=== PATIENT | male | born 1935 | race Caucasian/White ===

== ENCOUNTER 2020-05-19 11:10 | Emergency (ER) | payer OTHER, MEDICARE ==
--- OUTSIDE RECORDS SUMMARY | 2020-05-19 11:13 | XMS REPORT | Clinical Summary ---
:1935 Author Organization [facility] Address [address] [place] [address] Care Team Providers Name Role Phone Yulissa Primary Care Provider Allergies No Known Allergies Medications Medication Sig Dispensed Refills Start End Date Status Date omeprazole (PRILOSEC) 40 Take 40 mg by mouth 0 Active MG capsule daily In the morning . amLODIPine (NORVASC) 10 Take 10 mg by mouth 0 Active MG tabletIndications: daily In am . high blood pressure hydrochlorothiazide Take 12.5 mg by 0 Active (MICROZIDE) 12.5 mg mouth daily Friday, capsule Friday, Friday, in am . multivitamin per tablet Take 1 tablet by 0 Active mouth daily Takes centrum silver at home in am . metoprolol (TOPROL-XL) Take 50 mg by mouth 0 Active 50 MG 24 hr tablet daily At 5 pm . irbesartan (AVAPRO) 300 Take 300 mg by 0 Active MG tablet mouth nightly At 5 pm . pravastatin (PRAVACHOL) Take 40 mg by mouth 0 Active 40 MG tablet daily At bedtime . insulin glargine Inject 15 Units 0 Active (LANTUS) 100 unit/mL subcutaneously injection nightly Use as directed . insulin aspart Inject 6 Units 0 Active protamine-insulin aspart subcutaneously 3 (NOVOLOG MIX 70/30) 100 (three) times daily unit/mL (70-30) with meals. injection Hospital, Clinic, or Ordered Dose Route Frequency Start Date End D ate Status Other Facility Administered Medication iopamidol 100 mL IV IMG once as needed 04/12/2016 Active (ISOVUE-300) injection 100 mL iohexol (OMNIPAQUE) 30 mL Oral IMG once as needed 04/12/2016 Active injection 300 mg iodine/mL Active Problems Problem Noted Date Seizures 03/04/2016 TIA (transient ischemic attack) 02/28/2016 Social History Tobacco Use Types Packs/Day Years Used Date Never Smoker Alcohol Use Drinks/Week oz/Week Comments Yes 1 Glasses of wine 0.6 1 glass of red wine per week Sex Assigned at Date Recorded Not on file Job Start Date Occupation Industry Not on file Not on file Not on file Travel History Travel Start Travel End No recent travel history available. Last Filed Vital Signs Not on file Plan of Treatment Not on file Results Not on fileafter 05/19/2019 Insurance Payer Benefit Plan / Group Subscriber ID Type Phone A ddress MEDICARE MEDICARE A B xxxxxxxxxx Medicare MCR SUPPLEMENT/INDIVIDUAL AARP/[facility] xxxxxxxxxxx [facility] (Home) [place] [address] Advance Directives For more information, please contact:[address] [phone] Code Status Date Activated Date Inactivated Comments Full Code 02/28/2016 10:32 PM 03/02/2016 12:54 PM This code status was determined by: Patient
--- NOTE | 2020-05-19 12:24 | EDPHYS ---
Physician Documentation [facility] Name: Sunny Mcpherson Age: 84 yrs Sex: Male : 1935 Arrival Date: 05/19/2020 Time: 11:14 Bed 18 Private MD: Joel London V ED Physician Addy Pastor HPI: 05/19 12:16 This 84 yrs old Male presents to ER via Wheelchair with complaints of carol Vomiting blood, Bloody Stools. 12:16 The patient presents to the emergency department with nausea, vomiting, that is carol intermittent, 2 times since the onset of symptoms. Onset: The symptoms/episode began/occurred this morning. Possible causes: unknown. The symptoms are aggravated by nothing. The symptoms are alleviated by nothing. The patient presents to the emergency department vomiting blood, a moderate amount, coffee grounds in nature, with multiple such episodes. Onset: The symptoms/episode began/occurred 1 day(s) ago. Abdominal pain: none is appreciated. Modifying factors: The symptoms are alleviated by nothing, the symptoms are aggravated by nothing. Associated signs and symptoms: The patient has no apparent associated signs or symptoms. Associated signs and symptoms: The patient has no apparent associated signs or symptoms. Historical: - Allergies: 11:23 No Known Allergies; ll1 - PMHx: 11:23 BPH; Hypertension; Hyperlipidemia; Diabetes - IDDM; ll1 - PSHx: 11:23 Lithotripsy; TURP; Heart stents; colonoscopy; esophagus surgery; ll1 - Immunization history:: Flu vaccine is up to date. - Social history:: Smoking status: Patient denies any tobacco usage or history of. - Family history:: not pertinent. ROS: 12:16 Constitutional: Negative for fever, chills, and weight loss, Eyes: Negative for injury, carol pain, redness, and discharge, ENT: Negative for injury, pain, and discharge, Neck: Negative for injury, pain, and swelling, Cardiovascular: Negative for chest pain, palpitations, and edema, Respiratory: Negative for shortness of breath, cough, wheezing, and pleuritic chest pain, Back: Negative for injury and pain, : Negative for injury, bleeding, discharge, and swelling, MS/Extremity: Negative for injury and deformity, Skin: Negative for injury, rash, and discoloration, Neuro: Negative for headache, weakness, numbness, tingling, and seizure, Psych: Negative for depression, anxiety, suicide ideation, homicidal ideation, and hallucinations, Allergy/Immunology: Negative for hives, rash, and allergies, Endocrine: Negative for neck swelling, polydipsia, polyuria, polyphagia, and marked weight changes, Hematologic/Lymphatic: Negative for swollen nodes, abnormal bleeding, and unusual bruising. 12:16 Abdomen/GI: Positive for nausea and vomiting, hematemesis, black/tarry stool. Exam: 12:16 Constitutional: This is a well developed, well nourished patient who is awake, alert, carol and in no acute distress. Head/Face: Normocephalic, atraumatic. Eyes: Pupils equal round and reactive to light, extra-ocular motions intact. Lids and lashes normal. Conjunctiva and sclera are non-icteric and not injected. Cornea within normal limits. Periorbital areas with no swelling, redness, or edema. ENT: Nares patent. No nasal discharge, no septal abnormalities noted. Tympanic membranes are normal and external auditory canals are clear. Oropharynx with no redness, swelling, or masses, exudates, or evidence of obstruction, uvula midline. Mucous membranes moist. Neck: Trachea midline, no thyromegaly or masses palpated, and no cervical lymphadenopathy. Supple, full range of motion without nuchal rigidity, or vertebral point tenderness. No Meningismus. Chest/axilla: Normal chest wall appearance and motion. Nontender with no deformity. No lesions are appreciated. Cardiovascular: Regular rate and rhythm with a normal S1 and S2. No gallops, murmurs, or rubs. Normal PMI, no JVD. No pulse deficits. Respiratory: Lungs have equal breath sounds bilaterally, clear to auscultation and percussion. No rales, rhonchi or wheezes noted. No increased work of breathing, no retractions or nasal flaring. Back: No spinal tenderness. No costovertebral tenderness. Full range of motion. Male : Normal genitalia with no discharge or lesions. Skin: Warm, dry with normal turgor. Normal color with no rashes, no lesions, and no evidence of cellulitis. MS/ Extremity: Pulses equal, no cyanosis. Neurovascular intact. Full, normal range of motion. Neuro: Awake and alert, GCS 15, oriented to person, place, time, and situation. Cranial nerves II-XII grossly intact. Motor strength 5/5 in all extremities. Sensory grossly intact. Cerebellar exam normal. Normal gait. Psych: Awake, alert, with orientation to person, place and time. Behavior, mood, and affect are within normal limits. 12:16 Abdomen/GI: Inspection: abdomen appears normal, Bowel sounds: normal, Rectal exam: rectal tone normal, Stool: guaiac positive, black, hemorrhoid(s), are not appreciated, mass, is not appreciated, swelling, is not appreciated, tenderness, is not appreciated, Liver: no appreciated palpable abnormalities, Hernia: not appreciated. Vital Signs: 11:19 BP 115 / 66; Pulse 90; Resp 18; Temp 98.2; Pulse Ox 98% ; Weight 79.38 kg; Height 5 ft. ll1 10 in. (177.80 cm); Pain 0/10; 15:04 BP 135 / 81; Pulse 86; Resp 17 S; Pulse Ox 97% on R/A; jd3 11:19 Body Mass Index 25.11 (79.38 kg, 177.80 cm) ll1 MDM: 11:36 Patient medically screened. [facility] 13:04 Data reviewed: vital signs, nurses notes, EMS record, lab test result(s), EKG, [facility] radiologic studies, plain films. 05/19 12:09 Order name: Basic Metabolic Panel [facility] 05/19 12:09 Order name: CBC with Diff [facility] 05/19 12:09 Order name: LFT's [facility] 05/19 12:09 Order name: Magnesium [facility] 05/19 12:09 Order name: NT PRO-BNP [facility] 05/19 12:09 Order name: PT-INR; Complete Time: 13:29 [facility] 05/19 12:09 Order name: Troponin (emerg Dept Use Only) [facility] 05/19 12:09 Order name: XRAY Chest (1 view); Complete Time: 13:29 [facility] 05/19 12:09 Order name: Lipase [facility] 05/19 12:09 Order name: Urine Culture [facility] 05/19 12:09 Order name: Type And Screen; Complete Time: 13:29 [facility] 05/19 13:13 Order name: Urine Dipstick--Ancillary (enter results) 05/19 13:25 Order name: Manual Differential EDMS 05/19 12:09 Order name: EKG; Complete Time: 12:10 [facility] 05/19 12:09 Order name: Cardiac monitoring; Complete Time: 13:05 [facility] 05/19 12:09 Order name: EKG - Nurse/Tech; Complete Time: 12:28 [facility] 05/19 12:09 Order name: IV Saline Lock; Complete Time: 12:51 [facility] 05/19 12:09 Order name: Labs collected and sent; Complete Time: 12:52 [facility] 05/19 12:09 Order name: O2 Per Protocol; Complete Time: 12:52 [facility] 05/19 12:09 Order name: O2 Sat Monitoring; Complete Time: 12:52 [facility] 05/19 12:09 Order name: Urine Dipstick-Ancillary (obtain specimen); Complete Time: 13:13 [facility] 05/19 12:09 Order name: IV Saline Lock - Large Bore; Complete Time: 12:52 [facility] 05/19 13:37 Order name: Labs - recollect needed: recollect chemistry; Complete Time: 14:45 ss Administered Medications: 13:13 Drug: ProTONIX 80 mg Route: IVP; Site: right antecubital; jd3 14:13 Follow up: Response: No adverse reaction jd3 13:13 Drug: NS 0.9% 1000 ml Route: IV; Rate: 1 bolus; Site: right antecubital; jd3 14:13 Follow up: Response: No adverse reaction; IV Status: Completed infusion; IV Intake: jd3 1000ml 13:13 Drug: NS 0.9% 1000 ml Route: IV; Rate: 125 ml/hr; Site: right antecubital; jd3 15:37 Follow up: IV Status: Infusion continued upon transfer jd3 13:17 Drug: ProTONIX 8 mg/hr Route: IV; Rate: 25 ml/hr; Site: right antecubital; jd3 15:37 Follow up: IV Status: Infusion continued upon transfer jd3 Disposition: 05/19/20 12:23 Transfer ordered to [facility]. Diagnosis are Gastrointestinal hemorrhage, unspecified, Type 1 diabetes mellitus, Elevated white blood cell count. - Reason for transfer: Higher level of care. - Accepting physician is to [facility]. - Condition is Fair. - Problem is new. - Symptoms have improved. Signatures: Dispatcher [employer] EDAddy Min MD MD cha Smirch, Shelby, RN RN Surinder Lester RN RN jd3 Brandon Melchor RN RN ll1 Corrections: (The following items were deleted from the chart) 13:40 12:23 05/19/2020 12:23 Transfer ordered to [facility]. carol Diagnosis is Gastrointestinal hemorrhage, unspecified; Type 1 diabetes mellitus. Reason for transfer: Higher level of care. Accepting physician is to [facility]. Condition is Fair. Problem is new. Symptoms have improved. carol 15:37 13:40 05/19/2020 12:23 Transfer ordered to [facility]. jd3 Diagnosis is Gastrointestinal hemorrhage, unspecified; Type 1 diabetes mellitus; Elevated white blood cell count. Reason for transfer: Higher level of care. Accepting physician is to [facility]. Condition is Fair. Problem is new. Symptoms have improved. carol
--- NOTE | 2020-05-19 12:24 | ER ---
Nurse's Notes [facility] Name: Sunny Mcpherson Age: 84 yrs Sex: Male : 1935 Arrival Date: 05/19/2020 Time: 11:14 Bed 18 Private MD: Joel London V Diagnosis: Gastrointestinal hemorrhage, unspecified;Type 1 diabetes mellitus;Elevated white blood cell count Presentation: 05/19 11:19 Chief complaint: Patient states: Dark blood in stool today. Reports vomiting up blood ll1 today also. + weakness. Coronavirus screen: Client denies travel out of the [place] in the last 14 days. At this time, the client does not indicate any symptoms associated with coronavirus-19. Ebola Screen: Patient denies travel to an Ebola-affected area in the 21 days before illness onset. Initial Sepsis Screen: Does the patient meet any 2 criteria? HR > 90 bpm. No. Patient's initial sepsis screen is negative. Does the patient have a suspected source of infection? Yes: Other: rectal bleeding. Risk Assessment: Do you want to hurt yourself or someone else? Patient reports no desire to harm self or others. Onset of symptoms was May 19, 2020. 11:19 Method Of Arrival: Wheelchair ll1 11:19 Acuity: TOM 3 ll1 Historical: - Allergies: 11:23 No Known Allergies; ll1 - PMHx: 11:23 BPH; Hypertension; Hyperlipidemia; Diabetes - IDDM; ll1 - PSHx: 11:23 Lithotripsy; TURP; Heart stents; colonoscopy; esophagus surgery; ll1 - Immunization history:: Flu vaccine is up to date. - Social history:: Smoking status: Patient denies any tobacco usage or history of. - Family history:: not pertinent. Screenin:24 Abuse screen: Denies threats or abuse. Denies injuries from another. Nutritional ph screening: No deficits noted. Tuberculosis screening: No symptoms or risk factors identified. Fall Risk None identified. Assessment: 12:00 General: Appears in no apparent distress. comfortable, well groomed, Behavior is calm, ph cooperative, appropriate for age, Denies fever, feeling ill. Pain: Denies pain. Neuro: Level of Consciousness is awake, alert, obeys commands, Oriented to person, place, time, situation, Denies weakness dizziness. Cardiovascular: Capillary refill < 3 seconds in bilateral fingers Patient's skin is warm and dry. Respiratory: Airway is patent Respiratory effort is even, unlabored, Respiratory pattern is regular, symmetrical. GI: Abdomen is flat, non-distended, Reports rectal bleeding, bloody stool, vomiting, x1 episode last night, dark red blood in vomit. Derm: Skin is intact, is healthy with good turgor, Skin is pink, warm \T\ dry. Musculoskeletal: Circulation, motion, and sensation intact. Range of motion: intact in all extremities. 13:00 Reassessment: Patient appears in no apparent distress at this time. Patient and/or jd3 family updated on plan of care and expected duration. Pain level reassessed. Patient is alert, oriented x 3, equal unlabored respirations, skin warm/dry/pink. 14:00 Reassessment: Patient appears in no apparent distress at this time. Patient and/or jd3 family updated on plan of care and expected duration. Pain level reassessed. Patient is alert, oriented x 3, equal unlabored respirations, skin warm/dry/pink. GI: Abdomen is flat, non-distended, Patient currently denies abdominal pain. 15:00 Reassessment: Patient appears in no apparent distress at this time. Patient and/or jd3 family updated on plan of care and expected duration. Pain level reassessed. Patient is alert, oriented x 3, equal unlabored respirations, skin warm/dry/pink. report given to Lisette with [facility]. pt continues to deny pain at this time. 15:04 Reassessment: Called [facility] who reports their ETA will be 20-25 minutes to ss transfer patient to [facility]. 15:30 Reassessment: Patient appears in no apparent distress at this time. Patient and/or jd3 family updated on plan of care and expected duration. Pain level reassessed. Patient is alert, oriented x 3, equal unlabored respirations, skin warm/dry/pink. report given to EMS for transfer. Vital Signs: 11:19 BP 115 / 66; Pulse 90; Resp 18; Temp 98.2; Pulse Ox 98% ; Weight 79.38 kg; Height 5 ft. ll1 10 in. (177.80 cm); Pain 0/10; 15:04 BP 135 / 81; Pulse 86; Resp 17 S; Pulse Ox 97% on R/A; jd3 11:19 Body Mass Index 25.11 (79.38 kg, 177.80 cm) ll1 ED Course: 11:14 Patient arrived in ED. mr 11:14 Joel London MD is Private Physician. mr 11:22 Triage completed. ll1 11:23 Arm band placed on Patient placed in an exam room, on a stretcher. ll1 11:28 Leslie Childress RN is Primary Nurse. ph 11:36 Addy Pastor MD is Attending Physician. carol 11:55 Inserted saline lock: 20 gauge in right antecubital area, using aseptic technique. ph Blood collected. 12:22 EKG done, by ED staff, reviewed by Addy Pastor MD. 3 13:[address] Pastor with Rony Soares from the [facility] Transfer Center.eb 13:18 XRAY Chest (1 view) In Process Unspecified. EDMS 13:24 Patient has correct armband on for positive identification. Placed in gown. Bed in low ph position. Call light in reach. Side rails up X 1. patient monitor on. Pulse ox on. NIBP on. Door closed. Noise minimized. Warm blanket given. 13:41 connected GI information security officer for [facility] with Dr. Pastor for patient transfer eb consultation. 14:25 administrative approval given by Mary Beth Soares Rn/ Patient has been accepted to [facility] bed 2163/ Dr. Dickerson has accepted the patient in transfer without conference. report to be called to the transfer center at [phone]. 15:35 No provider procedures requiring assistance completed. Patient transferred, IV remains jd3 in place. Administered Medications: 13:13 Drug: ProTONIX 80 mg Route: IVP; Site: right antecubital; jd3 14:13 Follow up: Response: No adverse reaction jd3 13:13 Drug: NS 0.9% 1000 ml Route: IV; Rate: 1 bolus; Site: right antecubital; jd3 14:13 Follow up: Response: No adverse reaction; IV Status: Completed infusion; IV Intake: jd3 1000ml 13:13 Drug: NS 0.9% 1000 ml Route: IV; Rate: 125 ml/hr; Site: right antecubital; jd3 15:37 Follow up: IV Status: Infusion continued upon transfer jd3 13:17 Drug: ProTONIX 8 mg/hr Route: IV; Rate: 25 ml/hr; Site: right antecubital; jd3 15:37 Follow up: IV Status: Infusion continued upon transfer jd3 Intake: 14:13 IV: 1000ml; Total: 1000ml. jd3 Outcome: 12:23 ER care complete, transfer ordered by MD. median 15:35 Transferred by ground EMS to [facility], Transfer form completed. jd3 X-rays sent w/ patient. 15:35 Condition: stable 15:35 Instructed on the need for transfer, Demonstrated understanding of instructions. 15:37 Patient left the ED. jd3 Signatures: Dispatcher [employer] EDAddy Mni MD MD cha Rivera, Katherine mr Tamar Vásquez, RN RN Leslie London RN RN [place] [id number] Surinder Long RN RN jd3 Botello, Elizabeth eb Lewis, Lynsay, RN RN ll1 Corrections: (The following items were deleted from the chart) 13:41 13:[address] Pastor with Diana from the [facility] Transfer eb Center. eb
[2020-05-19 12:46] LABS: Protime INR 1.03
[2020-05-19] MEDS ORDERED: PANTOPRAZOLE INJ 80 MG in NA CHLORIDE 0.9% 250 ML IV SCH (13:00)
[2020-05-19] MEDS ORDERED: NA CHLORIDE 0.9% 2,000 ML ONE (13:08)
[2020-05-19] MEDS ORDERED: PANTOPRAZOLE 40 MG INJ ONE (13:08)
[2020-05-19 13:22] LABS: Absolute Lymphocytes (CBC) 0.4 K/uL (0.7-4.9); Basophils % 0.3 % (0-1.3); Hematocrit 33.7 % (39.6-49.0); Lymphocytes % 2.7 % (15.3-44.8); MPV 10.7 fL (7.6-11.3); RBC Red Blood Cell Count 3.76 M/uL (4.33-5.43)
--- NOTE | 2020-05-19 13:23 | RAD REPORT ---
EXAM DESCRIPTION: RAD - Chest Single View - 05/19/2020 1:16 pm CLINICAL HISTORY: COUGH, vomiting, hypertension COMPARISON: February 2016 TECHNIQUE: AP portable chest image was obtained 05/19/2020 1:16 pm . FINDINGS: No focal lung parenchymal process. Interstitial pattern matches comparison. Heart and vasc ulature are normal. No measurable pleural effusion and no pneumothorax. No acute bony abnormality see n. No acute aortic findings suspected. IMPRESSION: No acute cardiopulmonary process. No significant change from comparison.
[2020-05-19 13:53] LABS: Blood Morphology Comment NOT SEEN (NOT SEEN); Platelet Estimate ADEQ
[2020-05-19 13:56] LABS: Urine Blood NEGATIVE (NEG); Urine Glucose 2+ (NEG); Urine Protein NEGATIVE (NEG); Urine Specific Gravity 1.015 (1.005-1.030); Urine pH 5.5 (5.0-7.0)
[2020-05-19 15:23] LABS: ALT/SGPT 18 U/L (12-78); Albumin 3.1 g/dL (3.4-5.0); Alkaline Phosphatase 64 U/L (45-117); BUN Blood Urea Nitrogen 47 mg/dL (7-18); Bicarbonate 25 mmol/L (21-32); Bilirubin Direct 0.1 mg/dL (0-0.2); Bilirubin Total 0.7 mg/dL (0.2-1.0); Glucose Level 369 mg/dL (74-106); Lipase 106 U/L (73-393); NT PRO-BNP 270 pg/mL (<450); Protein, Total 6.5 g/dL (6.4-8.2); Sodium Level 139 mmol/L (136-145); Troponin (Emerg Dept Use Only) < 0.02 ng/mL (0.0-0.045)
[2020-05-19 15:24] LABS: AST/SGOT 27 U/L (15-37); Magnesium 2.2 mg/dL (1.8-2.4); Potassium 5.1 mmol/L (3.5-5.1)
[2020-05-19 15:44] VITALS: TEMP 98.2
[2020-05-19 15:46] VITALS: BP 135/81; O2SAT 97
--- NOTE | 2020-05-21 11:15 | EKG ---
Test Date: 2020-05-19 Test Time: 12:22:55 Risk Management Analyst: RAUL MEASUREMENT RESULTS: Intervals: Rate: 87 OH: 200 QRSD: 72 QT: 380 QTc: 457 Ruby: P: 48 OH: 200 QRS: -44 T: 54 INTERPRETIVE STATEMENTS: Sinus rhythm with occasional premature ventricular complexes Left axis deviation Abnormal ECG Compared to ECG 03/03/2016 19:41:35 Ventricular premature complex(es) now present Electronically Signed On 05-21-20 11:13:42 CDT by Jeff Dimas
== END 2020-05-19 15:37 | disposition short-term general hospital (02) ==
LOC: ER 11:10
DX: K92.1 Melena (principal); D72.829 Elevated white blood cell count, unspecified; E10.9 Type 1 diabetes mellitus without complications; I10 Essential (primary) hypertension; Z95.818 Presence of other cardiac implants and grafts
CPT/HCPCS: 96365; 93005; 87088; 85025; 87086; 80048; 36415; 86900; 83735; 86850; 85610; 86901; 80076; 81003; 84484; 83690; 83880; 71045; 99285; 96366; C9113 ×2; J7050; J7030

== ENCOUNTER 2024-10-22 13:50 | Emergency (ER) | payer OTHER, MEDICARE ==
[2024-10-22 14:27] LABS: Absolute Lymphocytes (CBC) 0.4 K/uL (0.7-4.9); Absolute Monocytes 0.9 K/uL (0.1-1.3); Basophils % 0.5 % (0-1.3); Eosinophils % 0.3 % (0-4.4); Hematocrit 39.4 % (39.6-49.0); Hemoglobin 13.5 g/dL (13.6-17.9); Lymphocytes % 5.6 % (15.3-44.8); MCH 32.5 pg (27.0-35.0); MCHC 34.4 g/dL (32.0-36.0); MCV 94.5 fL (80-100); MPV 9.4 fL (7.6-11.3); Neutrophils % 79.6 % (41.7-73.7); Platelets 140 thou/uL (152-406); RBC Red Blood Cell Count 4.17 M/uL (4.33-5.43); Red Cell Distribution Width 13.8 % (12.1-15.2)
[2024-10-22 14:40] LABS: ALT/SGPT 17 U/L (16-61); AST/SGOT 19 U/L (15-37); Albumin 3.5 g/dL (3.4-5.0); Albumin/Globulin Ratio 1.1 (1.1-1.8); Alkaline Phosphatase 77 U/L (45-117); Anion Gap 6.7 mEq/L (5.0-15.0); BUN Blood Urea Nitrogen 13 mg/dL (7-18); Bicarbonate 28 mEq/L (21-32); Bilirubin Total 0.4 mg/dL (0.2-1.0); Globulin 3.3 g/dL (2.3-3.5); Glomerular Filtration Rate 72 ml/min (=/>90); Glucose Level 256 mg/dL (74-106); Potassium 3.7 mEq/L (3.5-5.1); Protein, Total 6.8 g/dL (6.4-8.2); Sodium Level 139 mEq/L (136-145); Troponin High Sensitivity 16.1 pg/mL (<58.9)
[2024-10-22 14:41] LABS: Bilirubin Direct < 0.2 mg/dL (0-0.2); Bilirubin Indirect, Calculated 0.2 mg/dL (0.2-0.8)
[2024-10-22 15:46] LABS: Influenza A Ag Negative; Influenza B Ag Negative
[2024-10-22 15:47] LABS: SARS-CoV-2 Antigen Rapid Res Positive (Negative)
[2024-10-22 16:20] LABS: Sqamous Epithelial None Seen /HPF (None Seen); Urine Bacteria None Seen /HPF (<20); Urine Bilirubin NEGATIVE (Negative); Urine Blood Negative (Negative); Urine Clarity Clear (Clear); Urine Color Light-Yellow (Yellow); Urine Crystals Unidentified Few /HPF (None Seen); Urine Culture Reflex Order NOT NEEDED; Urine Glucose 4+ (Over) (Negative); Urine Ketones TRACE (Negative); Urine Micro Reflex YN NO BILL MICROSCOPIC; Urine Mucus Slight /HPF (None Seen); Urine Nitrite NEGATIVE (Negative); Urine Protein NEGATIVE (Negative); Urine RBC <5 /HPF (None Seen); Urine Urobilinogen Normal (Normal); Urine WBC <5 /HPF (<5); Urine pH 5.5 (5.0-7.0)
--- NOTE | 2024-10-22 16:42 | ER ---
Nurse's Notes [facility] Name: Sunny Mcpherson Age: 88 yrs Sex: Male : 1935 Arrival Date: 10/22/2024 Time: 13:50 Bed 7 Private MD: Diagnosis: COVID-19;Hyperglycemia Presentation: 10/22 14:02 Chief complaint: EMS states: Pt c/o generalized weakness, urinary frequency and high ph blood sugar, BGL 290s for EMS, IV established and 500 mL bolus given. Coronavirus screen: Vaccine status: Patient reports being unvaccinated. Ebola Screen: No symptoms or risks identified at this time. Initial Sepsis Screen: Does the patient meet any 2 criteria? No. Patient's initial sepsis screen is negative. Does the patient have a suspected source of infection? No. Patient's initial sepsis screen is negative. Risk Assessment: Do you want to hurt yourself or someone else? Patient reports no desire to harm self or others. Onset of symptoms was October 22, 2024. 14:02 Method Of Arrival: EMS: [facility] 14:02 Acuity: TOM 3 ph Triage Assessment: 14:10 General: Appears in no apparent distress. comfortable, Behavior is calm, cooperative. ph Pain: Denies pain. Neuro: Level of Consciousness is awake, alert, obeys commands, Oriented to person, place, time, situation. Cardiovascular: Capillary refill < 3 seconds in bilateral fingers Patient's skin is warm and dry. Respiratory: Airway is patent Respiratory effort is even, unlabored. GI: Patient currently denies abdominal pain. : Reports urinary frequency. Historical: - Allergies: 14:09 No Known Allergies; ph - PMHx: 14:09 BPH; Diabetes - IDDM; Hyperlipidemia; Hypertension; ph - Immunization history:: Adult Immunizations unknown. - Infectious Disease History:: Denies. - Social history:: Smoking status: Patient denies any tobacco usage or history of. - Family history:: not pertinent. Screenin:10 [facility] ED Fall Risk Assessment (Adult) History of falling in the last 3 months, ph including since admission No falls in past 3 months (0 pts) Confusion or Disorientation No (0 pts) Intoxicated or Sedated No (0 pts) Impaired Gait No (0 pts) Mobility Assist Device Used No (0 pt) Altered Elimination No (0 pt) Score/Fall Risk Level 0 - 2 = Low Risk Oriented to surroundings, Maintained a safe environment, Hourly rounding (assess needs \T\ fall precautionary measures) done. Abuse screen: Denies threats or abuse. Denies injuries from another. Nutritional screening: No deficits noted. Tuberculosis screening: No symptoms or risk factors identified. Assessment: 14:12 General: SEE TRIAGE ASSESSMENT. ph Vital Signs: 14:02 BP 134 / 58; Pulse 72; Resp 18; Temp 97.8; Pulse Ox 96% on R/A; Weight 72.57 kg; Height ph 5 ft. 10 in. ; 15:33 BP 133 / 65; Pulse 60; Resp 18; Pulse Ox 94% on R/A; ph 14:02 Body Mass Index 22.96 (72.57 kg, 177.8 cm) ph ED Course: 13:53 Patient arrived in ED. ty 13:53 Branden Ty MD is Attending Physician. rt 13:58 Orlando Almaraz RN is Primary Nurse. bp 14:08 Initial lab(s) drawn, by me, sent to lab. EKG done, by ED staff, reviewed by Branden Ty MD. Maintain EMS IV. Dressing intact. Good blood return noted. Site clean \T\ dry. Gauge \T\ site: 20 RAC. Flushed with 10 mL NS. 14:09 Triage completed. ph 14:09 Arm band placed on Patient placed in an exam room, on a stretcher, on pulse oximetry. ph 14:10 Patient has correct armband on for positive identification. Bed in low position. Call ph light in reach. Side rails up X 1. Pulse ox on. NIBP on. Door closed. Noise minimized. 16:38 Joel London MD is Referral Physician. rt Administered Medications: 14:17 Drug: NS 0.9% IV 1000 ml IV at 1000 ml once; to be given as a bolus over 60 minutes bp Route: IV; Rate: 1000 ml; Site: right antecubital; Medication: 14:10 VIS not applicable for this client. ph Outcome: 16:41 Discharge ordered by . rt 16:55 Patient left the ED. hb Signatures: Leslie Childress RN RN ph Janine Pimentel RN RN Orlando Almaraz RN RN bp Branden Ty MD MD rt Yandell, Nirav ty
--- NOTE | 2024-10-22 16:42 | EDPHYS ---
Physician Documentation [facility] Name: Sunny Mcpherson Age: 88 yrs Sex: Male : 1935 Arrival Date: 10/22/2024 Time: 13:50 Bed 7 Private MD: ED Physician Branden Ty HPI: 10/22 15:03 This 88 yrs old Male presents to ER via EMS with complaints of Generalized weakness. rt 15:03 Patient presents to the ED with generalized weakness and hyperglycemia reportedly up to rt 300 today. Reports urinary frequency but denies any acute complaints, symptoms are moderate in severity, no other aggravating or alleviating factors.. Historical: - Allergies: 14:09 No Known Allergies; ph - PMHx: 14:09 BPH; Diabetes - IDDM; Hyperlipidemia; Hypertension; ph - Immunization history:: Adult Immunizations unknown. - Infectious Disease History:: Denies. - Social history:: Smoking status: Patient denies any tobacco usage or history of. - Family history:: not pertinent. ROS: 15:03 Constitutional: Negative for fever, chills, and weight loss, Cardiovascular: Negative rt for chest pain, palpitations, and edema, Respiratory: Negative for shortness of breath, cough, wheezing, and pleuritic chest pain, Abdomen/GI: Negative for abdominal pain, nausea, vomiting, diarrhea, and constipation, Skin: Negative for injury, rash, and discoloration, 15:03 : Positive for urinary frequency, Negative for burning with urination, 15:03 Neuro: Positive for weakness, Negative for altered mental status, Exam: 15:03 Constitutional: This is a well developed, well nourished patient who is awake, alert, rt and in no acute distress. Head/Face: Normocephalic, atraumatic. Chest/axilla: Normal chest wall appearance and motion. Nontender with no deformity. No lesions are appreciated. Cardiovascular: Regular rate and rhythm with a normal S1 and S2. No gallops, murmurs, or rubs. Normal PMI, no JVD. No pulse deficits. Respiratory: Lungs have equal breath sounds bilaterally, clear to auscultation and percussion. No rales, rhonchi or wheezes noted. No increased work of breathing, no retractions or nasal flaring. Abdomen/GI: Soft, non-tender, with normal bowel sounds. No distension or tympany. No guarding or rebound. No evidence of tenderness throughout. Skin: Warm, dry with normal turgor. Normal color with no rashes, no lesions, and no evidence of cellulitis. MS/ Extremity: Pulses equal, no cyanosis. Neurovascular intact. Full, normal range of motion. Neuro: Awake and alert, GCS 15, oriented to person, place, time, and situation. Cranial nerves II-XII grossly intact. Motor strength 5/5 in all extremities. Sensory grossly intact. Cerebellar exam normal. Normal gait. 15:03 ECG was reviewed by the Attending Physician. Vital Signs: 14:02 BP 134 / 58; Pulse 72; Resp 18; Temp 97.8; Pulse Ox 96% on R/A; Weight 72.57 kg; Height ph 5 ft. 10 in. ; 15:33 BP 133 / 65; Pulse 60; Resp 18; Pulse Ox 94% on R/A; ph 14:02 Body Mass Index 22.96 (72.57 kg, 177.8 cm) ph MDM: 13:53 Medical Screening Exam initiated rt 18:39 Differential Diagnosis UTI, flu, COVID, dehydration. Data reviewed: vital signs, nurses rt notes. Consideration of Admission/Observation Escalation of care including admission/observation considered. Management of patient was discussed with the following: Primary Care Provider: No need to admit, will follow-up patient in the outpatient setting.. I considered the following discharge prescriptions or medication management in the emergency department Medications were administered in the Emergency Department. See MAR. Independent interpretation of the following test(s) in the Emergency Department X-Ray: My interpretation is No infiltrate seen on interpretation of x-ray images. Care significantly affected by the following chronic conditions: Hypertension. Counseling: I had a detailed discussion with the patient and/or guardian regarding the historical points, exam findings, and any diagnostic results supporting the discharge/admit diagnosis, lab results, radiology results. Response to treatment: the patient's symptoms have markedly improved after treatment. 10/22 14:01 Order name: Basic Metabolic Panel; Complete Time: 14:45 rt 10/22 14: Order name: CBC with Diff; Complete Time: 14:37 rt 10/22 14: Order name: LFT's; Complete Time: 14:45 rt 10/22 14: Order name: Troponin HS; Complete Time: 14:45 rt 10/22 14:01 Order name: UAM; Complete Time: 16:28 rt 10/22 14:45 Order name: COVID-19 Ag + Flu A+B Ag; Complete Time: 15:50 rt 10/22 14:01 Order name: Cardiac monitoring; Complete Time: 14:08 rt 10/22 14:01 Order name: EKG - Nurse/Tech; Complete Time: 14:08 rt 10/22 14:01 Order name: IV Saline Lock; Complete Time: 14:08 rt 10/22 14:01 Order name: Labs collected and sent; Complete Time: 14:08 rt 10/22 14:01 Order name: O2 Per Protocol; Complete Time: 14:08 rt 10/22 14:01 Order name: O2 Sat Monitoring; Complete Time: 14:08 rt EC:03 Rate is 71 beats/min. Rhythm is regular, 1st Degree Block with No ectopy. Left axis rt deviation noted. ND interval is normal. QRS interval is normal. QT interval is normal. No Q waves. Clinical impression: NSR w/ Non-specific ST/T Changes. Administered Medications: 14:17 Drug: NS 0.9% IV 1000 ml IV at 1000 ml once; to be given as a bolus over 60 minutes bp Route: IV; Rate: 1000 ml; Site: right antecubital; Disposition Summary: 10/22/24 16:41 Discharge Ordered Notes: Location: Home rt Problem: new rt Symptoms: have improved rt Condition: Stable rt Diagnosis - COVID-19 rt - Hyperglycemia rt Followup: rt - With: Joel London MD - When: 2 - 3 days - Reason: Discharge Instructions: - Discharge Summary Sheet rt - COVID-19 rt Forms: - Medication Reconciliation Form rt - Antibiotic Education rt - Prescription Opioid Use rt - Patient Portal Instructions rt - Leadership Thank You Letter rt Signatures: Dispatcher [employer] Leslie Perdomo RN RN Orlando Keller RN RN bp Branden Ty MD MD rt Corrections: (The following items were deleted from the chart) 14:01 14:01 BASIC METABOLIC PANEL+C.LAB.BRZ ordered. EDMS EDMS 14:01 14:01 CBC+H.LAB.BRZ ordered. EDMS EDMS 14: 14:01 HEPATIC FUNCTION+C.LAB.BRZ ordered. EDMS EDMS 14: 14:01 Troponin High Sensitivity+C.LAB.BRBry ordered. EDMS EDMS 14: 14:01 Urinalysis W/Microscopic+U.LAB.BRrBy ordered. EDMS EDMS 14: 14:46 COVID-19 Ag + Flu A+B Ag+I.LAB.BRBry ordered. EDMS EDMS
[2024-10-22 16:59] VITALS: TEMP 97.8
[2024-10-22 17:00] VITALS: BP 133/65; O2SAT 94
== END 2024-10-22 16:55 | disposition home or self-care (01) ==
LOC: ER 13:50
DX: U07.1 COVID-19 (principal); E11.65 Type 2 diabetes mellitus with hyperglycemia; I10 Essential (primary) hypertension
CPT/HCPCS: 36415; 80048; 80076; 81001; 84484; 85025; 87428; 93005; 99284